=== PATIENT | female | born 2000 | race Caucasian/White ===

== ENCOUNTER 2021-01-11 21:22 | Inpatient (IN) | payer BC, SELFPAY ==
[~2021-01-11] VITALS: Ht 172.7 cm; Wt 64.5 kg
[2021-01-11 21:58] VITALS: BP_SYST 87
[2021-01-11] MEDS ORDERED: ONDANSETRON HCL 4 MG/2 ML VIAL IVP ONE (22:15)
[2021-01-11] MEDS ORDERED: MORPHINE 2 MG/ML INJ. SYRINGE IVP ONE (22:15)
[2021-01-11] MEDS ORDERED: NACL 0.9% 1,000 ML IV ONE (22:15)
[2021-01-11 22:31] LABS: BASOPHILS # (AUTO) 0.1 K/uL (0.0-0.2); BASOPHILS % (AUTO) 0.7 % (0.0-2.0); EOSINOPHILS # (AUTO) 0.1 K/uL (0.0-0.4); EOSINOPHILS % (AUTO) 1.2 % (0.0-4.0); HEMATOCRIT 38.1 % (36-48); HEMOGLOBIN 12.5 g/dL (12.0-16.0); LYMPHOCYTES # (AUTO) 3.4 K/uL (1.0-5.5); LYMPHOCYTES % (AUTO) 32.6 % (20.5-51.5); MEAN CORPUSCULAR HEMOGLOBIN 28 pg (27-31); MEAN CORPUSCULAR HGB CONC 33 % (32-36); MEAN CORPUSCULAR VOLUME 85 fL (79.0-98.0); MONOCYTES # (AUTO) 0.6 K/uL (0.0-1.0); MONOCYTES % (AUTO) 5.6 % (1.7-9.3); NEUTROPHILS # (AUTO) 6.2 K/uL (1.8-7.7); NEUTROPHILS % (AUTO) 59.9 % (40.0-70.0); PLATELET COUNT (AUTO) 309 K/uL (130-430); RED CELL DISTRIBUTION WIDTH 14.8 % (9.0-15.0); WHITE BLOOD COUNT (AUTO) 10.3 K/uL (4.5-11.0)
[2021-01-11 22:39] LABS: CALCIUM 8.3 mg/dL (8.4-11.0); CREATININE 0.83 mg/dL (0.55-1.30); POTASSIUM 3.3 mmol/L (3.5-5.1)
[2021-01-11 22:50] LABS: ALBUMIN 3.2 g/dL (3.4-4.8); TOTAL BILIRUBIN 0.2 mg/dL (0.0-1.0)
[2021-01-12] MEDS ORDERED: fentaNYL CITRATE/PF 100 MCG/2 ML AMP IVP ONE ×2 (01:00→12:30)
[2021-01-12] MEDS ORDERED: FAMOTIDINE PF 20 MG/2 ML VIAL IVP ONE (01:00)
[2021-01-12] MEDS ORDERED: ONDANSETRON HCL 4 MG/2 ML VIAL IVP ONE (01:00)
[2021-01-12] MEDS ORDERED: NACL 0.9% 1,000 ML IV ONE (01:00)
[2021-01-12] MEDS ORDERED: fentaNYL CITRATE/PF 100 MCG/2 ML AMP ONE (01:06)
[2021-01-12 02:15] LABS: BILIRUBIN,URINE NEGATIVE (NEGATIVE); BLOOD, URINE NEGATIVE (NEGATIVE); CLARITY/URINE CLEAR (CLEAR); COLOR,URINE YELLOW (YELLOW); GLUCOSE,URINE NEGATIVE (NEGATIVE); KETONES,URINE TRACE (NEGATIVE); LEUKOCYTE ESTERASE ,URINE NEGATIVE (NEGATIVE); NITRITE, URINE NEGATIVE (NEGATIVE); PROTEIN URINE NEGATIVE (NEGATIVE); UROBILINOGEN,URINE 0.2 (0.2-1.0)
[2021-01-12] MEDS ORDERED: MORPHINE 2 MG/ML INJ. SYRINGE IVP PRN (02:30)
[2021-01-12 03:40] VITALS: BP_SYST 134
[2021-01-12] MEDS: D5/0.45 NS 1,000 ML IV SCH ×2 (03:40→14:31)
[2021-01-12] MEDS ORDERED: POTASSIUM CHLORIDE 40 MEQ in NS 250 ML IV ONE (05:45)
[2021-01-12 07:35] VITALS: BP_SYST 117
[2021-01-12] MEDS: ONDANSETRON HCL 4 MG/2 ML VIAL IVP PRN ×2 (07:37→21:26)
[2021-01-12 11:31] VITALS: BP_SYST 117
[2021-01-12] MEDS ORDERED: SEVOFLURANE 15 MIN GAS INH ONE (12:30)
[2021-01-12] MEDS ORDERED: ROCURONIUM BROMIDE 10 MG/ML (ZEMURON) IV ONE (12:30)
[2021-01-12] MEDS ORDERED: LR 1,000 ML IV.SOLN IV ONE (12:30)
[2021-01-12] MEDS ORDERED: BUPIVACAINE /EPINEPHRINE/PF 0.25% 30 ML VIAL INJ ONE (12:30)
[2021-01-12] MEDS ORDERED: SUGAMMADEX SODIUM 200 MG/2 ML VIAL IV ONE (12:30)
[2021-01-12] MEDS ORDERED: MEPERIDINE 100 MG INJ. 100 MG/ML VIAL IM ONE (12:30)
[2021-01-12] MEDS ORDERED: KETOROLAC TROMETHAMINE 30 MG VIAL IVP ONE (12:30)
[2021-01-12] MEDS ORDERED: PROPOFOL 200MG/ 20ML VIAL (DIPRIVAN) IV ONE (12:30)
[2021-01-12] MEDS ORDERED: DEXAMETHASONE SOD PHOSPHATE 4 MG/ML VIAL IVP ONE (12:30)
[2021-01-12] MEDS ORDERED: NS IRRIG SOLN 1000 ML IR ONE (12:30)
[2021-01-12] MEDS ORDERED: MIDAZOLAM HCL 5 MG/5 ML VIAL IVP ONE (12:30)
[2021-01-12] MEDS ORDERED: SUCCINYLCHOLINE CHLORIDE 20 MG/ML(QUELICIN) IVP ONE (12:30)
[2021-01-12] MEDS ORDERED: IOHEXOL 300 mgI/mL, 50 mL INFUS..BTL IV ONE (12:30)
[2021-01-12 15:50] VITALS: BP_SYST 130
[2021-01-12 20:15] VITALS: BP_SYST 133
[2021-01-13 00:27] VITALS: BP_SYST 111
[2021-01-13] MEDS: ONDANSETRON HCL 4 MG/2 ML VIAL IVP PRN (05:18)
[2021-01-13] MEDS: MORPHINE 4 MG INJ. 4 MG/ML VIAL IVP PRN ×2 (05:19→22:38)
[2021-01-13] MEDS: D5/0.45 NS 1,000 ML IV SCH (05:25)
[2021-01-13 06:51] LABS: BASOPHILS % (AUTO) 0.4 % (0.0-2.0); EOSINOPHILS # (AUTO) 0.1 K/uL (0.0-0.4); EOSINOPHILS % (AUTO) 0.6 % (0.0-4.0); HEMATOCRIT 35.7 % (36-48); HEMOGLOBIN 11.6 g/dL (12.0-16.0); LYMPHOCYTES # (AUTO) 2.9 K/uL (1.0-5.5); LYMPHOCYTES % (AUTO) 29.1 % (20.5-51.5); MEAN CORPUSCULAR HEMOGLOBIN 28 pg (27-31); MEAN CORPUSCULAR HGB CONC 33 % (32-36); MEAN CORPUSCULAR VOLUME 84 fL (79.0-98.0); MONOCYTES % (AUTO) 10.2 % (1.7-9.3); NEUTROPHILS % (AUTO) 59.7 % (40.0-70.0); PLATELET COUNT (AUTO) 294 K/uL (130-430); RED BLOOD CELL COUNT(AUTO) 4.22 MIL/uL (4.2-6.2); RED CELL DISTRIBUTION WIDTH 15.2 % (9.0-15.0)
[2021-01-13 07:49] LABS: ALBUMIN 2.9 g/dL (3.4-4.8); CALCIUM 8.2 mg/dL (8.4-11.0); CREATININE 0.82 mg/dL (0.55-1.30); POTASSIUM 3.4 mmol/L (3.5-5.1); TOTAL BILIRUBIN 0.5 mg/dL (0.0-1.0)
[2021-01-13 08:00] VITALS: BP_SYST 123
[2021-01-13 11:22] VITALS: BP_SYST 113
[2021-01-13] MEDS ORDERED: fentaNYL CITRATE/PF 100 MCG/2 ML AMP IVP PRN ×2 (16:00)
[2021-01-13] MEDS ORDERED: ONDANSETRON HCL 4 MG/2 ML VIAL IVP PRN ×2 (16:00→19:30)
[2021-01-13] MEDS ORDERED: ACETAMINOPHEN 325 MG TABLET PO PRN (19:30)
[2021-01-13] MEDS ORDERED: NALOXONE HCL 0.4 MG/ML AMP (NARCAN) IVP PRN (19:30)
[2021-01-13] MEDS ORDERED: HYDROcodone/ACETAMIN 5-325 MG TAB (NORCO/ VICODIN) PO PRN (19:30)
[2021-01-13] MEDS ORDERED: D5/0.45 NS 1,000 ML IV SCH (19:30)
[2021-01-13] MEDS ORDERED: CEFAZOLIN 2 GM IVPB PREMIX 50 ML IV SCH (20:00)
[2021-01-13 20:17] VITALS: BP_SYST 123
[2021-01-13 22:21] VITALS: BP_SYST 100
[2021-01-13 22:43] VITALS: BP_SYST 129
== END 2021-01-13 23:15 | disposition short-term general hospital (02) | DRG 446 ==
LOC: SED 21:22 → SMU 01-12 02:30
PROVIDERS: ADMIT Preventive Medicine Preventive Medicine/Occupational Environmental Medicine; ATTEND Preventive Medicine Preventive Medicine/Occupational Environmental Medicine
PROC: BF131ZZ Fluoroscopy of Gallbladder and Bile Ducts using Low Osmolar Contrast (ICD-10-PCS; principal; 2021-01-13 13:01)
DX: K80.01 Calculus of gallbladder with acute cholecystitis with obstruction (principal); E87.6 Hypokalemia; R73.9 Hyperglycemia, unspecified; E83.52 Hypercalcemia; E88.09 Other disorders of plasma-protein metabolism, not elsewhere classified; Z20.822 Contact with and (suspected) exposure to COVID-19; K82.9 Disease of gallbladder, unspecified
CPT/HCPCS: 36415; 74300; 76376; 76705; 78226; 80053; 81003; 83690; 84702; 85025; 85730-TC; 86886; 86900; 86901; 87081; 96361; 96374; 96375; 96376; 99285; A9537; C1727; C9399; J0330; J0690; J1100; J1885; J2175; J2250; J2270; J2405; J2704; J3010; J3480; J3490; J7050; J7120; Q9967

== ENCOUNTER 2021-02-24 21:02 | Emergency (ER) | payer BC, SELFPAY ==
[~2021-02-24] VITALS: Ht 172.7 cm; Wt 59.4 kg
[2021-02-24 21:08] VITALS: BP_SYST 109
[2021-02-24] MEDS ORDERED: NACL 0.9% 1,000 ML IV ONE (21:45)
[2021-02-24] MEDS ORDERED: ONDANSETRON 4 MG ODT TAB PO ONE (21:45)
[2021-02-24] MEDS ORDERED: ONDANSETRON HCL 4 MG/2 ML VIAL ONE (22:06)
[2021-02-24 22:10] LABS: BASOPHILS % (AUTO) 0.2 % (0.0-2.0); EOSINOPHILS # (AUTO) 0.1 K/uL (0.0-0.4); EOSINOPHILS % (AUTO) 0.5 % (0.0-4.0); HEMOGLOBIN 11.5 g/dL (12.0-16.0); LYMPHOCYTES # (AUTO) 0.9 K/uL (1.0-5.5); LYMPHOCYTES % (AUTO) 6.3 % (20.5-51.5); MEAN CORPUSCULAR HEMOGLOBIN 27 pg (27-31); MEAN CORPUSCULAR HGB CONC 33 % (32-36); MEAN CORPUSCULAR VOLUME 84 fL (79.0-98.0); MONOCYTES # (AUTO) 0.7 K/uL (0.0-1.0); MONOCYTES % (AUTO) 5.3 % (1.7-9.3); NEUTROPHILS # (AUTO) 12.1 K/uL (1.8-7.7); NEUTROPHILS % (AUTO) 87.7 % (40.0-70.0); PLATELET COUNT (AUTO) 312 K/uL (130-430); RED BLOOD CELL COUNT(AUTO) 4.18 MIL/uL (4.2-6.2); RED CELL DISTRIBUTION WIDTH 15.3 % (9.0-15.0); WHITE BLOOD COUNT (AUTO) 13.8 K/uL (4.5-11.0)
[2021-02-24] MEDS ORDERED: ONDANSETRON HCL 4 MG/2 ML VIAL IVP ONE (22:15)
[2021-02-24 22:38] LABS: BILIRUBIN,URINE 1+ (NEGATIVE); BLOOD, URINE NEGATIVE (NEGATIVE); CLARITY/URINE CLOUDY (CLEAR); COLOR,URINE YELLOW (YELLOW); GLUCOSE,URINE NEGATIVE (NEGATIVE); KETONES,URINE NEGATIVE (NEGATIVE); LEUKOCYTE ESTERASE ,URINE NEGATIVE (NEGATIVE); NITRITE, URINE NEGATIVE (NEGATIVE); PH,URINE 8.5 (5.0-8.0); PROTEIN URINE 1+ (NEGATIVE)
[2021-02-24 22:46] LABS: CALCIUM 8.9 mg/dL (8.4-11.0); CREATININE 0.69 mg/dL (0.55-1.30); POTASSIUM 3.7 mmol/L (3.5-5.1)
[2021-02-24 22:52] LABS: ALBUMIN 3.5 g/dL (3.4-4.8); TOTAL BILIRUBIN 1.3 mg/dL (0.0-1.0)
[2021-02-24 22:59] LABS: PROTHROMBIN TIME 10.5 SECS (9.5-12.5)
[2021-02-24 23:26] LABS: BACTERIA,URINE FEW /HPF (None Seen); MUCUS,URINE 2+ /LPF (None Seen); RBC,URINE 0-3 /HPF (0-3); URINE AMORPHOUS PHOSPHATES 4+ /HPF (None Seen); WBC,URINE 0-3 /HPF (0-3)
[2021-02-24 23:32] LABS: C-REACTIVE PROTEIN QUANT 0.2 mg/dL (0-0.5)
[2021-02-25] MEDS ORDERED: ONDANSETRON HCL 4 MG/2 ML VIAL IVP ONE (01:45)
[2021-02-25] MEDS ORDERED: NACL 0.9% 1,000 ML IV ONE (01:45)
[2021-02-25] MEDS ORDERED: MORPHINE 2 MG/ML INJ. SYRINGE IVP ONE (01:45)
[2021-02-25 02:10] VITALS: BP_SYST 106
[2021-02-25] MEDS ORDERED: ONDA-8 TL (02:23)
[2021-02-25] MEDS ORDERED: HYDR-3917 PO (02:23)
== END 2021-02-25 02:55 | disposition home or self-care (01) ==
LOC: SED 21:02
DX: K75.9 Inflammatory liver disease, unspecified (principal); R11.2 Nausea with vomiting, unspecified; Z79.899 Other long term (current) drug therapy
CPT/HCPCS: 36415; 74176; 76376; 80053; 81000; 81025; 82150; 83605; 83615; 83690; 84703; 85025; 85610; 85730; 86140; 96361 ×2; 96374; 96375; 96376; 99284; J2270; J2405 ×2; J7030 ×2

== ENCOUNTER 2021-02-25 13:22 | Emergency (ER) | payer BC, SELFPAY ==
[~2021-02-25] VITALS: Ht 167.6 cm; Wt 54.4 kg
[~2021-02-25 13:22] MED LIST: HYDR-3917 PO; ONDA-8 TL
[2021-02-25 13:36] VITALS: BP_SYST 129
[2021-02-25 14:24] LABS: BASOPHILS # (AUTO) 0.1 K/uL (0.0-0.2); BASOPHILS % (AUTO) 0.3 % (0.0-2.0); EOSINOPHILS % (AUTO) 0.1 % (0.0-4.0); HEMATOCRIT 34.6 % (36-48); HEMOGLOBIN 11.3 g/dL (12.0-16.0); LYMPHOCYTES # (AUTO) 0.6 K/uL (1.0-5.5); LYMPHOCYTES % (AUTO) 3.8 % (20.5-51.5); MEAN CORPUSCULAR HEMOGLOBIN 27 pg (27-31); MEAN CORPUSCULAR HGB CONC 33 % (32-36); MEAN CORPUSCULAR VOLUME 84 fL (79.0-98.0); MONOCYTES # (AUTO) 0.6 K/uL (0.0-1.0); MONOCYTES % (AUTO) 3.8 % (1.7-9.3); NEUTROPHILS # (AUTO) 15.3 K/uL (1.8-7.7); PLATELET COUNT (AUTO) 307 K/uL (130-430); RED BLOOD CELL COUNT(AUTO) 4.14 MIL/uL (4.2-6.2); RED CELL DISTRIBUTION WIDTH 15.7 % (9.0-15.0); WHITE BLOOD COUNT (AUTO) 16.7 K/uL (4.5-11.0)
[2021-02-25] MEDS ORDERED: NACL 0.9% IV ONE (14:30)
[2021-02-25 14:32] LABS: BILIRUBIN,URINE NEGATIVE (NEGATIVE); BLOOD, URINE NEGATIVE (NEGATIVE); CLARITY/URINE CLEAR (CLEAR); COLOR,URINE YELLOW (YELLOW); GLUCOSE,URINE NEGATIVE (NEGATIVE); KETONES,URINE 2+ (NEGATIVE); LEUKOCYTE ESTERASE ,URINE NEGATIVE (NEGATIVE); NITRITE, URINE NEGATIVE (NEGATIVE); PROTEIN URINE NEGATIVE (NEGATIVE); UROBILINOGEN,URINE 0.2 (0.2-1.0)
[2021-02-25 14:45] LABS: CALCIUM 8.6 mg/dL (8.4-11.0); CREATININE 0.79 mg/dL (0.55-1.30); POTASSIUM 3.3 mmol/L (3.5-5.1)
[2021-02-25 14:49] LABS: INR 1.2 (0.8-1.2); PROTHROMBIN TIME 12.5 SECS (9.5-12.5)
[2021-02-25 14:52] LABS: ALBUMIN 3.3 g/dL (3.4-4.8); TOTAL BILIRUBIN 1.1 mg/dL (0.0-1.0)
[2021-02-25] MEDS ORDERED: VANCOMYCIN HCL 1,000 MG in NS 250 ML IV ONE (15:45)
[2021-02-25] MEDS ORDERED: PIPERACILLIN/TAZO 3.375 GM in NS 50 ML IV ONE (15:45)
[2021-02-25] MEDS ORDERED: PIPERACILLIN/TAZOBACTAM 3.375 GM/VIAL (ZOSYN) IV ONE (15:46)
[2021-02-25] MEDS ORDERED: VANCOMYCIN HCL 1000 MG/VIAL IV ONE (15:46)
[2021-02-25 21:00] VITALS: BP_SYST 129
== END 2021-02-25 21:00 ==
LOC: SED 13:22
DX: K83.09 Other cholangitis (principal); R11.2 Nausea with vomiting, unspecified; Z79.899 Other long term (current) drug therapy; Z20.822 Contact with and (suspected) exposure to COVID-19
CPT/HCPCS: 36415; 71045; 74177; 76376; 80053; 81003; 83605; 84484; 84703; 85025; 85610; 85730; 87040; 87086; 87426; 93005; 96361; 96365; 96366; 96368; 99285; J2543; J3370; J7030; Q9967